=== PATIENT | male | born 1955 | race Caucasian/White ===

== ENCOUNTER 2017-12-05 22:02 | Inpatient (IN) | payer OTHER ==
[~2017-12-05] VITALS: Ht 185.4 cm; Wt 73.3 kg
[2017-12-05] MEDS ORDERED: PROMETHAZINE HCL 25 MG/ML 1ML ONE (22:42)
[2017-12-05] MEDS ORDERED: PROMETHAZINE HCL 25 MG/ML 1ML IV ONE (22:45)
[2017-12-05] MEDS ORDERED: methylPREDNISolone SOD SUCC 125 MG/2 ML VL IV ONE (23:00)
[2017-12-05 23:32] LABS: Basophils # (auto) 0.1 uL; Basophils % (auto) 0.8 % (0.0-2.0); Eosinophils # (auto) 0 uL; Hematocrit 36.9 % (41.0-53.0); Hemoglobin 12.3 g/dL (13.5-17.5); Lymphocytes # (auto) 0.8 uL; Lymphocytes % (auto) 6.1 % (10.0-50.0); Mean Corpuscular Hemoglobin 33.1 pg (28.0-32.0); Mean Corpuscular Hgb Conc. 33.3 g/dL (32.0-36.0); Mean Corpuscular Volume 99.2 fL (80.0-100.0); Monocytes # (auto) 1.4 uL; Monocytes % (auto) 11.2 % (0.0-12.0); Neutrophils # (auto) 10.1 uL; Neutrophils % (auto) 81.9 % (37.0-80.0); Platelet Count (auto) 290 10^3/uL (140-450); Red Blood Cells 3.72 10^6/uL (4.5-5.90); Red Cell Distribution Width 16.5 % (11.8-14.3); White Blood Cell 12.4 10^3/uL (4.4-10.8)
[2017-12-05] MEDS ORDERED: SPIRONOLACTONE 25 MG TAB ONE (23:36)
[2017-12-05] MEDS ORDERED: SPIRONOLACTONE 25 MG TAB PO ONE (23:45)
[2017-12-05] MEDS ORDERED: BENZOCAINE (DENTAL) 20 % SPRAY 60ML MT ONE (23:46)
[2017-12-05 23:47] LABS: Anion Gap 15 (5-15); Carbon Dioxide 16 mmol/L (21-32); Chloride 103 mmol/L (98-107); Glucose 76 mg/dL (74-106); Sodium 134 mmol/L (136-145)
[2017-12-05 23:49] LABS: Alanine Aminotransferase 28 U/L (16-61); Aspartate Aminotransferase 35 U/L (15-37); BUN/Creatinine Ratio 23.5; GFR African American 19 mL/min; GFR Non-African American 15 mL/min
[2017-12-05 23:52] LABS: Lactic Acid w/Reflex 3.5 mmol/L (0.4-2.0)
[2017-12-05 23:53] LABS: Alkaline Phosphatase 104 U/L (45-117); Bilirubin, Total 1.4 mg/dL (0.2-1.0); Total Protein 7.2 g/dL (6.4-8.2)
[2017-12-05 23:54] LABS: Amylase 21 U/L (25-115); Lipase 47 U/L (73-393)
[2017-12-05 23:59] LABS: Blood Urea Nitrogen 98 mg/dL (7-18)
[2017-12-06] VITALS (69 sets, daily range): BP systolic 73–137; BP diastolic 52–91
[2017-12-06 00:04] LABS: INR 1.62 (0.9-1.15); Prothrombin Time 16.9 sec (9.27-12.13)
[2017-12-06] MEDS ORDERED: CALCIUM GLUC 4.65meq/50ml D5AE 50 ML IV ONE (01:00)
[2017-12-06] MEDS ORDERED: DEXTROSE (50%) 50ML SYRG IV ONE (01:00)
[2017-12-06] MEDS ORDERED: InsuLIN REG 1unit/0.01ml Soln (100units/ml) IV ONE ×2 (01:00→01:15)
[2017-12-06] MEDS ORDERED: SODIUM BICARBONATE 8.4 % INJ 50ML VIAL IV ONE ×3 (01:00→07:00)
[2017-12-06] MEDS ORDERED: ALBUTEROL SULF 2.5 MG/0.5ML(0.5%) NEB SOLN NEB ONE (01:30)
[2017-12-06] MEDS ORDERED: SUCCINYLCHOLINE CHLORIDE 20 MG/ML 10ML VIAL IV ONE ×2 (01:42→02:15)
[2017-12-06] MEDS ORDERED: ETOMIDATE (2MG/ML) 20ML VIAL IV ONE ×2 (01:42→02:15)
[2017-12-06] MEDS ORDERED: MIDAZOLAM DRIP 50 mg/50mL 50 ML IV ONE (01:50)
[2017-12-06] MEDS ORDERED: LACTULOSE 20Gm/30ML SOLN NG ONE (02:15)
[2017-12-06] MEDS: MIDAZOLAM DRIP 50 mg/50mL 50 ML IV SCH ×2 (03:19→05:38)
[2017-12-06] MEDS ORDERED: SODIUM POLYSTYRENE SULF 15GM/60ML SUSP PO ONE (03:30)
[2017-12-06 03:47] LABS: Urine Bacteria FEW /hpf (None Seen); Urine Blood 2+ /uL (Negative); Urine Hyaline Cast FEW /lpf (0 - 2); Urine Specific Gravity 1.016 (1.001-1.035); Urine WBC 3 /hpf (0 - 3)
[2017-12-06] MEDS ORDERED: VANCOMYCIN 1GM/250ML 250 ML IV ONE ×2 (04:30→09:00)
[2017-12-06] MEDS ORDERED: cefTRIAXone 1GM/10ml IVPUSH 10 ML IV ONE (04:30)
[2017-12-06] MEDS ORDERED: SODIUM CHLORIDE 0.9% 1,000 ML IV ONE ×3 (04:45→18:05)
[2017-12-06] MEDS ORDERED: ALBUMIN 25% 50 ML IV ONE (06:00)
[2017-12-06] MEDS ORDERED: VANCOMYCIN PER PHARMACY 0 MG IV SCH (06:30)
[2017-12-06] MEDS ORDERED: ACETAMINOPHEN 650 mg PER 20 mL UD PO PRN (06:30)
[2017-12-06 07:05] LABS: Basophils # (auto) 0.1 uL; Basophils % (auto) 1.1 % (0.0-2.0); Eosinophils # (auto) 0 uL; Hematocrit 32.8 % (41.0-53.0); Lymphocytes # (auto) 0.4 uL; Lymphocytes % (auto) 3.4 % (10.0-50.0); Mean Corpuscular Hemoglobin 33.4 pg (28.0-32.0); Mean Corpuscular Hgb Conc. 33.5 g/dL (32.0-36.0); Mean Corpuscular Volume 99.6 fL (80.0-100.0); Monocytes # (auto) 1.2 uL; Neutrophils # (auto) 10.2 uL; Neutrophils % (auto) 85.5 % (37.0-80.0); Nucleated Red Blood Cells % 0.1 %; Platelet Count (auto) 223 10^3/uL (140-450); Red Blood Cells 3.29 10^6/uL (4.5-5.90); Red Cell Distribution Width 17.2 % (11.8-14.3); White Blood Cell 11.9 10^3/uL (4.4-10.8)
[2017-12-06 07:21] LABS: Albumin 2.7 g/dL (3.4-5.0); Calcium 8.8 mg/dL (8.5-10.1); Potassium 5.4 mmol/L (3.5-5.1)
[2017-12-06] MEDS: NOREPINEPHRINE 8 MG/250ML KIT 250 ML IV SCH (07:22)
[2017-12-06 07:25] LABS: Bilirubin, Total 1.6 mg/dL (0.2-1.0); Total Protein 6.5 g/dL (6.4-8.2)
[2017-12-06] MEDS ORDERED: LACTULOSE 20Gm/30ML SOLN PO ONE (09:30)
[2017-12-06] MEDS: ALBUMIN 25% 100 ML IV SCH ×3 (09:48→23:38)
[2017-12-06] MEDS: cefTRIAXone 1GM/10ml IVPUSH 10 ML IV SCH (09:49)
[2017-12-06] MEDS: PANTOPRAZOLE 40 MG/10 ML VIAL IV SCH (09:49)
[2017-12-06] MEDS ORDERED: LIDOCAINE 1% (LOCAL ANESTH.) PF 5ml SDV ONE (10:47)
[2017-12-06] MEDS: SODIUM BICARBONATE 650 MG TAB PO SCH ×2 (14:21→21:20)
[2017-12-06] MEDS ORDERED: LIDOCAINE 1% HCL (LOCAL ANESTH.) INJ 20ML MDV ID ONE (14:30)
[2017-12-06] MEDS: SODIUM CHLORIDE 0.9% 1,000 ML IV SCH ×2 (16:15→23:33)
[2017-12-06 18:39] LABS: Creatinine, Urine < 13 mg/dL (30.0-125.0); Sodium Urine 139 mmol/L (40-220)
[2017-12-06] MEDS: LACTULOSE 20Gm/30ML SOLN PO SCH (21:20)
[2017-12-07] VITALS (90 sets, daily range): BP systolic 69–117; BP diastolic 40–81
[2017-12-07] MEDS: LACTULOSE 20Gm/30ML SOLN PO SCH ×5 (00:01→17:57)
[2017-12-07] MEDS: NOREPINEPHRINE 8 MG/250ML KIT 250 ML IV SCH ×3 (01:37→18:43)
[2017-12-07] MEDS: SODIUM BICARBONATE 50ML VIAL 50 ML in SOD CHL 0.45% 1,000 ML IV SCH ×2 (03:00→11:47)
[2017-12-07 04:31] LABS: Albumin 3.2 g/dL (3.4-5.0); Calcium 7.8 mg/dL (8.5-10.1)
[2017-12-07 04:35] LABS: Bilirubin, Total 1.2 mg/dL (0.2-1.0); Total Protein 6.6 g/dL (6.4-8.2)
[2017-12-07 04:44] LABS: Potassium 5.6 mmol/L (3.5-5.1)
[2017-12-07] MEDS: SODIUM BICARBONATE 650 MG TAB PO SCH (05:58)
[2017-12-07] MEDS ORDERED: InsuLIN REG 1unit/0.01ml Soln (100units/ml) ONE (06:57)
[2017-12-07] MEDS ORDERED: DEXTROSE 50% SYRINGE 50 ML IV ONE (06:57)
[2017-12-07] MEDS ORDERED: DEXTROSE (50%) 50ML SYRG IV ONE (07:00)
[2017-12-07] MEDS ORDERED: InsuLIN REG 1unit/0.01ml Soln (100units/ml) IV ONE (07:00)
[2017-12-07] MEDS: PANTOPRAZOLE 40 MG/10 ML VIAL IV SCH (09:24)
[2017-12-07] MEDS: cefTRIAXone 1GM/10ml IVPUSH 10 ML IV SCH (09:25)
[2017-12-07] MEDS ORDERED: SODIUM CHL 0.9% 1000 ML BAG XX ONE (15:15)
[2017-12-07] MEDS ORDERED: HEPARIN SODIUM (PORCINE) 5000 UNITS/ML 1ML VIAL IV ONE (16:30)
[2017-12-07] MEDS: fentaNYL Drip 2500mCg/250mlNS 250 ML IV SCH (16:55)
[2017-12-08] VITALS (105 sets, daily range): BP systolic 75–146; BP diastolic 40–88
[2017-12-08 04:14] LABS: BUN/Creatinine Ratio 22.1; Bilirubin, Total 1.3 mg/dL (0.2-1.0); Calcium 7.2 mg/dL (8.5-10.1); Potassium 4.2 mmol/L (3.5-5.1); Total Protein 5.9 g/dL (6.4-8.2)
[2017-12-08] MEDS: NOREPINEPHRINE 8 MG/250ML KIT 250 ML IV SCH ×2 (04:32→08:10)
[2017-12-08] MEDS: LACTULOSE 20Gm/30ML SOLN PO SCH ×4 (05:30→18:00)
[2017-12-08] MEDS ORDERED: EPOETIN ALFA 10,000 UNIT/1 ML VIAL IV ONE (08:15)
[2017-12-08] MEDS ORDERED: SODIUM CHL 0.9% 1000 ML BAG XX ONE (08:15)
[2017-12-08] MEDS ORDERED: SOD CHL 0.45% 1,000 ML IV SCH (09:00)
[2017-12-08] MEDS ORDERED: TPN PER PHARMACY 0 ML IV SCH (10:00)
[2017-12-08] MEDS ORDERED: DEXTROSE (50%) 50ML SYRG IV SCH (10:15)
[2017-12-08 10:43] LABS: Magnesium 2.2 mg/dL (1.6-2.6); Phosphorus 5.1 mg/dL (2.5-4.90); Pre Albumin 5.2 mg/dL (20.0-40.0)
[2017-12-08] MEDS: NOREPINEPHRINE BITARTRATE 16 MG in D5W 5% 250 ML IV SCH ×2 (12:58→21:54)
[2017-12-08] MEDS: PHENYLEPHRINE INJ 20 MG in SODIUM CHL 0.9% 250 ML IV SCH ×2 (14:36→17:49)
[2017-12-08] MEDS: fentaNYL Drip 2500mCg/250mlNS 250 ML IV SCH (15:57)
[2017-12-08] MEDS: PANTOPRAZOLE 40 MG/10 ML VIAL IV SCH (17:17)
[2017-12-08] MEDS: cefTRIAXone 1GM/10ml IVPUSH 10 ML IV SCH (17:18)
[2017-12-08 19:39] LABS: Magnesium 1.9 mg/dL (1.6-2.6); Phosphorus 3.4 mg/dL (2.5-4.90)
[2017-12-08 19:48] LABS: Potassium 3.7 mmol/L (3.5-5.1)
[2017-12-08] MEDS ORDERED: TPN PER PHARMACY IV NR ×6 (20:00)
[2017-12-09] VITALS (106 sets, daily range): BP systolic 56–139; BP diastolic 32–97
[2017-12-09] MEDS: ACCU-CHEK COMFORT CURVE STRIP VI SCH ×5 (00:40→23:35)
[2017-12-09] MEDS: InsuLIN REG 1unit/0.01ml Soln (100units/ml) SC SCH ×5 (00:42→23:35)
[2017-12-09] MEDS: LACTULOSE 20Gm/30ML SOLN PO SCH ×5 (00:43→23:35)
[2017-12-09] MEDS: PHENYLEPHRINE INJ 20 MG in SODIUM CHL 0.9% 250 ML IV SCH ×4 (02:09→21:01)
[2017-12-09 04:08] LABS: Albumin 2.5 g/dL (3.4-5.0); BUN/Creatinine Ratio 17.8; Bilirubin, Total 1.1 mg/dL (0.2-1.0); Calcium 7.3 mg/dL (8.5-10.1); Magnesium 2.3 mg/dL (1.6-2.6); Phosphorus 3.7 mg/dL (2.5-4.90); Potassium 3.4 mmol/L (3.5-5.1); Total Protein 5.3 g/dL (6.4-8.2)
[2017-12-09] MEDS: fentaNYL Drip 2500mCg/250mlNS 250 ML IV SCH (06:29)
[2017-12-09] MEDS: PANTOPRAZOLE 40 MG/10 ML VIAL IV SCH (08:55)
[2017-12-09] MEDS: cefTRIAXone 1GM/10ml IVPUSH 10 ML IV SCH (08:55)
[2017-12-09 08:57] LABS: Eosinophils # (auto) 0 uL; Lymphocytes # (auto) 0.9 uL; Monocytes # (auto) 1.3 uL
[2017-12-09 08:58] LABS: Basophils # (auto) 0 uL; Basophils % (auto) 0.2 % (0.0-2.0); Eosinophils % (auto) 0.2 % (0.0-7.0); Hematocrit 31.4 % (41.0-53.0); Hemoglobin 10.9 g/dL (13.5-17.5); Mean Corpuscular Hgb Conc. 34.7 g/dL (32.0-36.0); Monocytes % (auto) 13.2 % (0.0-12.0); Neutrophils # (auto) 7.4 uL; Neutrophils % (auto) 77.4 % (37.0-80.0); Nucleated Red Blood Cells % 0.1 %; Red Blood Cells 3.21 10^6/uL (4.5-5.90); Red Cell Distribution Width 16.8 % (11.8-14.3); White Blood Cell 9.5 10^3/uL (4.4-10.8)
[2017-12-09 09:09] LABS: Platelet Count (auto) 36 10^3/uL (140-450)
[2017-12-09] MEDS ORDERED: POTASSIUM CHL 20MEQ/100ML 100 ML IV ONE (12:45)
[2017-12-09] MEDS ORDERED: SODIUM CHL 0.9% 1000 ML BAG XX ONE (17:00)
[2017-12-09] MEDS: TPN PER PHARMACY IV NR ×9 (20:16)
[2017-12-09 21:07] LABS: Urine Bacteria NONE SEEN /hpf (None Seen); Urine Blood 3+ /uL (Negative); Urine Mucus FEW (None Seen); Urine Specific Gravity 1.015 (1.001-1.035); Urine WBC 46 /hpf (0 - 3)
[2017-12-09 22:42] LABS: Creatinine, Urine 84 mg/dL (30.0-125.0); Sodium Urine 11 mmol/L (40-220)
[2017-12-10] VITALS (104 sets, daily range): BP systolic 57–141; BP diastolic 31–88
[2017-12-10] MEDS: fentaNYL Drip 2500mCg/250mlNS 250 ML IV SCH ×2 (01:30→19:53)
[2017-12-10] MEDS: NOREPINEPHRINE BITARTRATE 16 MG in D5W 5% 250 ML IV SCH ×2 (01:30→22:40)
[2017-12-10] MEDS: PHENYLEPHRINE INJ 20 MG in SODIUM CHL 0.9% 250 ML IV SCH ×2 (03:16→19:49)
[2017-12-10 04:31] LABS: Basophils # (auto) 0 uL; Basophils % (auto) 0.1 % (0.0-2.0); Eosinophils # (auto) 0.1 uL; Lymphocytes # (auto) 0.9 uL; Platelet Count (auto) 34 10^3/uL (140-450)
[2017-12-10 04:35] LABS: Eosinophils % (auto) 0.7 % (0.0-7.0); Hematocrit 31.9 % (41.0-53.0); Hemoglobin 11.1 g/dL (13.5-17.5); Mean Corpuscular Hemoglobin 33.9 pg (28.0-32.0); Mean Corpuscular Hgb Conc. 34.6 g/dL (32.0-36.0); Monocytes # (auto) 1.7 uL; Monocytes % (auto) 15.9 % (0.0-12.0); Neutrophils # (auto) 8.2 uL; Neutrophils % (auto) 75.3 % (37.0-80.0); Red Blood Cells 3.26 10^6/uL (4.5-5.90); Red Cell Distribution Width 16.7 % (11.8-14.3); White Blood Cell 10.9 10^3/uL (4.4-10.8)
[2017-12-10 04:53] LABS: Albumin 2.3 g/dL (3.4-5.0); BUN/Creatinine Ratio 18.5; Bilirubin, Total 1.2 mg/dL (0.2-1.0); Calcium 7.2 mg/dL (8.5-10.1); Magnesium 1.7 mg/dL (1.6-2.6); Phosphorus 3.6 mg/dL (2.5-4.90); Potassium 3.3 mmol/L (3.5-5.1); Total Protein 5.2 g/dL (6.4-8.2); Uric Acid 4.7 mg/dL (3.5-7.2)
[2017-12-10] MEDS: ACCU-CHEK COMFORT CURVE STRIP VI SCH ×3 (05:44→17:32)
[2017-12-10] MEDS: InsuLIN REG 1unit/0.01ml Soln (100units/ml) SC SCH ×3 (05:44→17:39)
[2017-12-10] MEDS: LACTULOSE 20Gm/30ML SOLN PO SCH ×3 (05:44→17:32)
[2017-12-10] MEDS ORDERED: POTASSIUM CHL 20MEQ/100ML 100 ML IV ONE (07:15)
[2017-12-10] MEDS: PANTOPRAZOLE 40 MG/10 ML VIAL IV SCH (11:12)
[2017-12-10] MEDS: cefTRIAXone 1GM/10ml IVPUSH 10 ML IV SCH (11:12)
[2017-12-10] MEDS ORDERED: SODIUM CHLORIDE 0.9% 500 ML IV ONE (14:15)
[2017-12-10] MEDS: ALBUMIN 25% 100 ML IV SCH ×2 (14:42→16:59)
[2017-12-10] MEDS: TPN PER PHARMACY IV NR ×9 (19:54)
[2017-12-10] MEDS ORDERED: TPN PER PHARMACY IV NR ×10 (20:00)
[2017-12-11] VITALS (81 sets, daily range): BP systolic 42–105; BP diastolic 22–74
[2017-12-11] MEDS: LACTULOSE 20Gm/30ML SOLN PO SCH ×2 (00:27→06:08)
[2017-12-11] MEDS: ACCU-CHEK COMFORT CURVE STRIP VI SCH ×2 (00:27→05:21)
[2017-12-11] MEDS: InsuLIN REG 1unit/0.01ml Soln (100units/ml) SC SCH ×2 (00:30→05:21)
[2017-12-11] MEDS: PHENYLEPHRINE INJ 20 MG in SODIUM CHL 0.9% 250 ML IV SCH (04:09)
[2017-12-11 06:07] LABS: Albumin 2.6 g/dL (3.4-5.0); BUN/Creatinine Ratio 17.9; Bilirubin, Total 1.3 mg/dL (0.2-1.0); Calcium 7.7 mg/dL (8.5-10.1); Magnesium 2.2 mg/dL (1.6-2.6); Phosphorus 3.3 mg/dL (2.5-4.90); Potassium 3.5 mmol/L (3.5-5.1); Total Protein 5.2 g/dL (6.4-8.2)
[2017-12-11 07:40] LABS: Basophils # (auto) 0 uL; Basophils % (auto) 0.2 % (0.0-2.0); Eosinophils # (auto) 0.1 uL; Eosinophils % (auto) 1.3 % (0.0-7.0); Hematocrit 28.3 % (41.0-53.0); Hemoglobin 9.8 g/dL (13.5-17.5); Lymphocytes # (auto) 0.7 uL
[2017-12-11 07:44] LABS: Lymphocytes % (auto) 7.1 % (10.0-50.0); Mean Corpuscular Hemoglobin 34.3 pg (28.0-32.0); Mean Corpuscular Hgb Conc. 34.7 g/dL (32.0-36.0); Monocytes # (auto) 1.7 uL; Monocytes % (auto) 16.6 % (0.0-12.0); Neutrophils # (auto) 7.6 uL; Neutrophils % (auto) 74.8 % (37.0-80.0); Platelet Count (auto) 28 10^3/uL (140-450); Red Blood Cells 2.86 10^6/uL (4.5-5.90); Red Cell Distribution Width 16.8 % (11.8-14.3); White Blood Cell 10.1 10^3/uL (4.4-10.8)
[2017-12-11] MEDS: PANTOPRAZOLE 40 MG/10 ML VIAL IV SCH (09:58)
[2017-12-11] MEDS: cefTRIAXone 1GM/10ml IVPUSH 10 ML IV SCH (09:59)
[2017-12-11] MEDS: NOREPINEPHRINE BITARTRATE 16 MG in D5W 5% 250 ML IV SCH (10:01)
[2017-12-11] MEDS: MORPHINE SULF INJ 2 MG/ML SYRINGE 1ML IV PRN ×3 (12:19→16:59)
[2017-12-11] MEDS: LORazepam 2MG/ML-1ML VIAL IV PRN ×3 (13:38→17:58)
[2017-12-11] MEDS ORDERED: POTASSIUM CHLORIDE IV NR ×11 (20:00)
[2017-12-11] MEDS ORDERED: [UNRECOGNIZED DRUG - OTHER] IV NR ×11 (20:00)
[2017-12-11] MEDS ORDERED: SODIUM ACETATE IV NR ×11 (20:00)
[2017-12-11] MEDS ORDERED: FAT EMULSION IV NR ×11 (20:00)
== END 2017-12-11 19:55 | disposition expired | DRG 870 ==
LOC: EDBD 22:02 → ER 22:10 → OVERFLOW 22:11 → ICU WEST 12-06 07:13
PROVIDERS: ADMIT Nurse Practitioner Family; ATTEND Internal Medicine Pulmonary Disease
PROC: 5A1955Z Respiratory Ventilation, Greater than 96 Consecutive Hours (ICD-10-PCS; principal; 2017-12-06)
PROC: 0BH17EZ Insertion of Endotracheal Airway into Trachea, Via Natural or Artificial Opening (ICD-10-PCS; 2017-12-06)
PROC: 0W9G3ZZ Drainage of Peritoneal Cavity, Percutaneous Approach (ICD-10-PCS; 2017-12-06)
PROC: 0DH673Z Insertion of Infusion Device into Stomach, Via Natural or Artificial Opening (ICD-10-PCS; 2017-12-06)
PROC: 5A1D70Z Performance of Urinary Filtration, Intermittent, Less than 6 Hours Per Day (ICD-10-PCS; 2017-12-07)
PROC: 02HV33Z Insertion of Infusion Device into Superior Vena Cava, Percutaneous Approach (ICD-10-PCS; 2017-12-07)
PROC: 5A1D70Z Performance of Urinary Filtration, Intermittent, Less than 6 Hours Per Day (ICD-10-PCS; 2017-12-08)
DX: A41.9 Sepsis, unspecified organism (principal); E43 Unspecified severe protein-calorie malnutrition; N17.0 Acute kidney failure with tubular necrosis; J96.00 Acute respiratory failure, unspecified whether with hypoxia or hypercapnia; K76.7 Hepatorenal syndrome; E87.1 Hypo-osmolality and hyponatremia; N17.9 Acute kidney failure, unspecified; E87.2 Acidosis; R18.8 Other ascites; R57.9 Shock, unspecified; N18.5 Chronic kidney disease, stage 5; I12.0 Hypertensive chronic kidney disease with stage 5 chronic kidney disease or end stage renal disease; Z94.4 Liver transplant status; D64.9 Anemia, unspecified; E87.5 Hyperkalemia; Z66 Do not resuscitate; J44.9 Chronic obstructive pulmonary disease, unspecified; K74.60 Unspecified cirrhosis of liver; K72.90 Hepatic failure, unspecified without coma; Z68.21 Body mass index [BMI] 21.0-21.9, adult
CPT/HCPCS: 31500; 36415; 36600; 49083; 51702; 71045; 74176; 76705; 76942; 80053; 80202; 81001; 82040; 82140; 82150; 82570; 82805; 82962; 83605; 83690; 83735; 83880; 84100; 84132; 84300; 84478; 84484; 84550; 85025; 85610; 85730; 87040; 87070; 87077; 87081; 87186; 87205; 90935; 93005; 94002; 94003; 96361; 96365; 96375; 99291; A6257; C9113; G0378; J0330; J0610; J0696; J0885; J1642; J1815; J2250; J3480; J7060; P9047